=== PATIENT | male | born 1995 | race Caucasian/White ===

== ENCOUNTER 2017-02-08 19:12 | Emergency (ER) | payer SELFPAY ==
[~2017-02-08] VITALS: Ht 180.3 cm; Wt 70.9 kg
[~2017-02-08 19:12] MED LIST: NO HOME MEDICATIONS
[2017-02-08 19:24] VITALS: BP 142/81; PULSE 71; TEMP 98.5
== END 2017-02-08 22:03 | disposition home or self-care (01) ==
LOC: COL.ER 19:12
DX: L23.7 Allergic contact dermatitis due to plants, except food (principal)
CPT/HCPCS: J1040; J1100